=== PATIENT | female | born 1955 | race Caucasian/White ===

== ENCOUNTER 2022-03-10 06:45 | Inpatient (IN) ==
[2022-03-10] MEDS ORDERED: Dexmedetomidine HCl 400 MCG/100 ML MLS IVC ONE (06:56)
[2022-03-10] MEDS ORDERED: Albumin Human 5% 12.5 GM/250 ML IV.SOLN ONE (06:56)
[2022-03-10] MEDS ORDERED: *HR* Vasopressin 20 UNIT/ML VIAL ONE (06:56)
[2022-03-10] MEDS ORDERED: NiCARdipine 2.5 MG/10 ML Syringe IVPB ONE (06:57)
[2022-03-10] MEDS ORDERED: *HR* Propofol 200 MG/20 ML VIAL IVP ONE (07:15)
[2022-03-10] MEDS ORDERED: *HR* FentaNYL (PF) 100 MCG/2 ML VIAL ONE (07:15)
[2022-03-10] MEDS ORDERED: Ondansetron 4 MG/2 ML VIAL ONE (07:19)
[2022-03-10] MEDS ORDERED: Lidocaine -MPF 2% 5 ML VIAL ONE (07:19)
[2022-03-10] MEDS ORDERED: *HR* Rocuronium Bromide 50 MG/5 ML VIAL ONE ×3 (07:19→11:49)
[2022-03-10] MEDS ORDERED: *HR* Phenylephrine 10 MG/ML VIAL ONE (07:21)
[2022-03-10] MEDS ORDERED: Heparin 1,000 UNITS/500 mL 1,500 ML ONE (07:41)
[2022-03-10] MEDS ORDERED: Protamine Sulfate 50 MG/5 ML VIAL IVP ONE (07:42)
[2022-03-10] MEDS ORDERED: *HR* HYDROmorphone PF 0.5 MG/0.5 ML SYRINGE IVP PRN (07:47)
[2022-03-10] MEDS ORDERED: *HR* OxyCODONE Immed Rel 5 MG TABLET PO PRN ×2 (07:47→21:34)
[2022-03-10] MEDS ORDERED: Ondansetron 4 MG/2 ML VIAL IVP PRN (07:48)
[2022-03-10] MEDS ORDERED: Promethazine 6.25 MG in Water for inj. (sterile) 20 ML IVPB PRN (07:48)
[2022-03-10] MEDS ORDERED: CeFAZolin Syr 2,000MG/20 ML 2,000 MG/20 ML SYRINGE IVPB ONE (08:07)
[2022-03-10] MEDS ORDERED: *HR* HYDROMORPHONE 2 MG/ML VIAL ONE (08:52)
[2022-03-10] MEDS ORDERED: *HR* Heparin 5,000 UNIT/ML VIAL ONE (09:23)
[2022-03-10] MEDS ORDERED: EPHEDrine 50 MG/ML VIAL ONE (11:09)
[2022-03-10] MEDS ORDERED: Heparin 1,000 UNITS/500 mL 0 ML ONE (11:36)
[2022-03-10 12:23] LABS: ABG Base Excess -7 mEq/L (-2 to 3); ABG Chloride 105 mEq/L (98-107); ABG Glucose 217 mg/dL (60-95); ABG HCO3 21 mEq/L (21-27); ABG Ionized Calcium 1.09 mmol/L (1.15-1.35); ABG Oxygen Saturation 99 % (95-98); ABG PCO2 51 mmHg (35-45); ABG PH 7.21 pH Units (7.32-7.45); ABG PO2 193 mmHg (85-104); ABG TCO2 22 mEq/L (20-26)
[2022-03-10] MEDS ORDERED: Sugammadex Sodium 200 MG/2 ML VIAL IV ONE (12:44)
[2022-03-10 14:25] LABS: Hematocrit 30.6 % (35.3-44.9)
[2022-03-10 14:26] LABS: Hemoglobin 9.7 g/dL (11.5-15.4)
[2022-03-10] MEDS ORDERED: Naloxone 0.4 MG/ML INJ IVP PRN (18:17)
[2022-03-10] MEDS ORDERED: Ipratropium/Albuterol Neb 3 ML IH PRN (18:18)
[2022-03-10] MEDS ORDERED: Phenylephrine 20 MG in 0.9 % Sodium Chloride 250 ML IVC SCH (19:00)
[2022-03-10] MEDS: Albumin Human 5% 12.5 GM/250 ML IV.SOLN IVC SCH ×2 (22:06→23:12)
[2022-03-10] MEDS: *HR* OxyCODONE Immed Rel 5 MG TABLET PO PRN (22:44)
[2022-03-11] MEDS: *HR* OxyCODONE Immed Rel 5 MG TABLET PO PRN ×3 (02:57→12:50)
[2022-03-11 05:34] LABS: Hematocrit 29.5 % (35.3-44.9); Hemoglobin 9.2 g/dL (11.5-15.4); Mean Corpuscular HGB Conc 31.2 g/dL (31.6-35.5); Mean Corpuscular Hemoglobin 27.4 pg (28.0-33.3); Mean Corpuscular Volume 87.8 fL (83.0-100.0); Mean Platelet Volume 10.1 fL (9.4-12.4); Platelet Count 158 K/mcL (140-400); Red Blood Count 3.36 M/mcL (3.82-4.97); Red Cell Distribution Width 17.9 % (11.5-14.5)
[2022-03-11 05:37] LABS: INR 1.1; Prothrombin Time 12.3 Seconds (9.4-12.1)
[2022-03-11 05:40] LABS: White Blood Count 19.9 K/mcL (4.3-11.1)
[2022-03-11 05:58] LABS: Alanine Aminotransferase 69 Units/L (7-52); Albumin 3.5 g/dL (3.5-5.7); Albumin/Globulin Ratio 2.7 (1.1-2.2); Alkaline Phosphatase 19 Units/L (34-104); Aspartate Amino Transferase 104 Units/L (13-39); BUN/Creatinine Ratio 18 (6-26); Bilirubin,Direct 0.1 mg/dL (0.0-0.2); Bilirubin,Indirect 0.3 mg/dL (0.0-1.0); Bilirubin,Total 0.4 mg/dL (0.3-1.0); Blood Urea Nitrogen 19 mg/dL (8-23); Calcium 8.4 mg/dL (8.6-10.3); Carbon Dioxide 24 mEq/L (23-29); Chloride 107 mEq/L (98-107); Globulin 1.3 g/dL (2.4-3.5); Glucose 121 mg/dL (70-105); Magnesium 1.4 mg/dL (1.6-2.6); Osmolality,Calculated 290 (280-300); Phosphorous 6.4 mg/dL (2.7-4.5); Sodium 138 mEq/L (136-145); Total Protein 4.8 g/dL (6.4-8.9)
[2022-03-11] MEDS ORDERED: Pregabalin 75 MG CAPSULE PO SCH (09:00)
[2022-03-11 09:27] LABS: VBG HCO3 24 mEq/L (21-27); VBG PCO2 59 mmHg (41-51); VBG PH 7.21 pH Units (7.32-7.42); VBG PO2 52 mmHg (25-50)
[2022-03-11 15:56] LABS: Troponin I < 0.03 ng/mL (< 0.04)
[2022-03-11] MEDS ORDERED: Calcium Gluconate 1gm/50mL 1 GM/50 ML BAG IVPB PRN (18:55)
[2022-03-11] MEDS ORDERED: Ipratropium/Albuterol Neb 3 ML IH PRN (18:55)
[2022-03-11] MEDS ORDERED: *HR* OxyCODONE Immed Rel 5 MG TABLET PO PRN ×2 (18:55)
[2022-03-11] MEDS ORDERED: Potassium Phosphate 44 MEQ in 0.9 % Sodium Chloride 250 ML IVPB PRN (18:55)
[2022-03-11] MEDS ORDERED: Naloxone 0.4 MG/ML INJ IVP PRN ×2 (18:55)
[2022-03-11] MEDS ORDERED: Phenylephrine 20 MG in 0.9 % Sodium Chloride 250 ML IVC SCH (18:55)
[2022-03-11] MEDS ORDERED: Ringers Solution, Lactated 1,000 ML IVC SCH (18:55)
[2022-03-11] MEDS ORDERED: Ondansetron 4 MG/2 ML VIAL IVP PRN (18:55)
[2022-03-11] MEDS: Ringers Solution, Lactated 1,000 ML IVC SCH ×2 (18:58→18:59)
[2022-03-11 19:53] LABS: INR 1.1; Prothrombin Time 11.7 Seconds (9.4-12.1)
[2022-03-11] MEDS: Famotidine 20 MG/2 ML VIAL IVP SCH (20:26)
[2022-03-11] MEDS: Pregabalin 75 MG CAPSULE PO SCH (20:26)
[2022-03-11] MEDS: 0.9 % Sodium Chloride 1,000 ML IVC SCH (20:27)
[2022-03-11] MEDS: *HR* Metoprolol 5 MG/5 ML VIAL IVP SCH (20:27)
[2022-03-11] MEDS: Budesonide/Formoterol 80/4.5 1 PUFF INH IH SCH (20:44)
[2022-03-11] MEDS: CeFAZolin 2 GM/120 ML BAG IVPB SCH (21:56)
[2022-03-12 02:47] LABS: VBG Ionized Calcium 1.25 mmol/L (1.15-1.35)
[2022-03-12 03:22] LABS: Basophils % 0.2 %; Hematocrit 27.7 % (35.3-44.9); Hemoglobin 8.4 g/dL (11.5-15.4); Lymphocytes # 1.1 K/mcL (0.6-4.6); Lymphocytes % 7.1 %; Mean Corpuscular HGB Conc 30.3 g/dL (31.6-35.5); Mean Corpuscular Volume 89.1 fL (83.0-100.0); Mean Platelet Volume 9.6 fL (9.4-12.4); Monocytes # 1.2 K/mcL (0.0-1.3); Monocytes % 7.4 %; Neutrophils # 13.2 K/mcL (1.6-8.9); Platelet Count 173 K/mcL (140-400); Red Blood Count 3.11 M/mcL (3.82-4.97); Red Cell Distribution Width 18.5 % (11.5-14.5); Segmented Neutrophils % 84.3 %; White Blood Count 15.6 K/mcL (4.3-11.1)
[2022-03-12] MEDS: *HR* Metoprolol 5 MG/5 ML VIAL IVP SCH ×5 (03:26→23:09)
[2022-03-12] MEDS: CeFAZolin 2 GM/120 ML BAG IVPB SCH ×2 (03:57→12:17)
[2022-03-12] MEDS: Famotidine 20 MG/2 ML VIAL IVP SCH ×2 (05:42→18:06)
[2022-03-12] MEDS: Budesonide/Formoterol 80/4.5 1 PUFF INH IH SCH ×2 (07:23→20:13)
[2022-03-12] MEDS ORDERED: *HR* Dextrose 50 % in Water (Syg) 50 ML SYRINGE ONE (09:49)
[2022-03-12] MEDS ORDERED: *HR* Dextrose 50 % in Water (Syg) 50 ML SYRINGE IVP ONE (09:58)
[2022-03-12] MEDS: Pregabalin 75 MG CAPSULE PO SCH ×2 (10:05→19:18)
[2022-03-12] MEDS: 0.9 % Sodium Chloride 1,000 ML IVC SCH (10:08)
[2022-03-12] MEDS ORDERED: 0.9 % Sodium Chloride 1,000 ML IVC SCH (14:15)
[2022-03-12 15:15] LABS: Calcium 8.1 mg/dL (8.6-10.3); Potassium 3.6 mEq/L (3.5-5.1)
[2022-03-12] MEDS: *HR* Dextrose 50 % in Water (Syg) 50 ML SYRINGE IVP PRN (17:17)
[2022-03-12] MEDS: D5% in 0.9% NACL 1,000 ML IVC SCH (18:06)
[2022-03-13] MEDS: *HR* Labetalol 20 MG/4 ML SYRINGE IVP PRN ×2 (01:44→20:11)
[2022-03-13 03:10] LABS: Basophils % 0.2 %; Eosinophils % 0.1 %; Hematocrit 25.9 % (35.3-44.9); Hemoglobin 7.7 g/dL (11.5-15.4); Immature Granulocytes % 0.6 % (0-4); Lymphocytes # 0.8 K/mcL (0.6-4.6); Lymphocytes % 6.2 %; Mean Corpuscular HGB Conc 29.7 g/dL (31.6-35.5); Mean Corpuscular Hemoglobin 26.6 pg (28.0-33.3); Mean Corpuscular Volume 89.6 fL (83.0-100.0); Mean Platelet Volume 9.4 fL (9.4-12.4); Monocytes # 0.9 K/mcL (0.0-1.3); Monocytes % 7.4 %; Neutrophils # 10.4 K/mcL (1.6-8.9); Platelet Count 174 K/mcL (140-400); Red Blood Count 2.89 M/mcL (3.82-4.97); Red Cell Distribution Width 18.4 % (11.5-14.5); Segmented Neutrophils % 85.5 %; White Blood Count 12.2 K/mcL (4.3-11.1)
[2022-03-13 03:31] LABS: BUN/Creatinine Ratio 28 (6-26); Blood Urea Nitrogen 17 mg/dL (8-23); Calcium 8.5 mg/dL (8.6-10.3); Carbon Dioxide 27 mEq/L (23-29); Chloride 109 mEq/L (98-107); Glucose 122 mg/dL (70-105); Magnesium 2.1 mg/dL (1.6-2.6); Osmolality,Calculated 295 (280-300); Phosphorous 1.6 mg/dL (2.7-4.5); Potassium 3.6 mEq/L (3.5-5.1); Sodium 141 mEq/L (136-145)
[2022-03-13] MEDS: Famotidine 20 MG/2 ML VIAL IVP SCH ×2 (05:37→17:33)
[2022-03-13] MEDS: *HR* Metoprolol 5 MG/5 ML VIAL IVP SCH ×4 (05:37→22:57)
[2022-03-13] MEDS: Budesonide/Formoterol 80/4.5 1 PUFF INH IH SCH ×2 (08:00→20:27)
[2022-03-13] MEDS: Pregabalin 75 MG CAPSULE PO SCH ×2 (09:51→20:11)
[2022-03-13] MEDS: Metoclopramide 10 MG/2 ML VIAL IVP SCH ×3 (12:07→22:57)
[2022-03-13] MEDS: D5% in 0.9% NACL 1,000 ML IVC SCH (14:21)
[2022-03-13 23:09] LABS: BUN/Creatinine Ratio 24 (6-26); Blood Urea Nitrogen 12 mg/dL (8-23); Calcium 8.5 mg/dL (8.6-10.3); Carbon Dioxide 25 mEq/L (23-29); Chloride 111 mEq/L (98-107); Glucose 119 mg/dL (70-105); Osmolality,Calculated 293 (280-300); Potassium 4.2 mEq/L (3.5-5.1); Sodium 141 mEq/L (136-145)
[2022-03-13] MEDS ORDERED: D5% in Water 1,000 ML IVC PRN (23:52)
[2022-03-13] MEDS ORDERED: Dextrose Gel 15 GM/37.5 ML TUBE PO PRN ×2 (23:52)
[2022-03-13] MEDS: *HR* Dextrose 50 % in Water (Syg) 50 ML SYRINGE IVP PRN (23:59)
[2022-03-14 02:29] LABS: Hematocrit 22.8 % (35.3-44.9); Hemoglobin 6.9 g/dL (11.5-15.4); Mean Corpuscular HGB Conc 30.3 g/dL (31.6-35.5); Mean Corpuscular Volume 89.1 fL (83.0-100.0); Mean Platelet Volume 9.8 fL (9.4-12.4); Platelet Count 167 K/mcL (140-400); Red Blood Count 2.56 M/mcL (3.82-4.97); Red Cell Distribution Width 18.4 % (11.5-14.5); White Blood Count 10.1 K/mcL (4.3-11.1)
[2022-03-14 02:49] LABS: BUN/Creatinine Ratio 24 (6-26); Blood Urea Nitrogen 12 mg/dL (8-23); Calcium 8.2 mg/dL (8.6-10.3); Carbon Dioxide 26 mEq/L (23-29); Chloride 109 mEq/L (98-107); Glucose 195 mg/dL (70-105); Osmolality,Calculated 295 (280-300); Potassium 3.4 mEq/L (3.5-5.1); Sodium 140 mEq/L (136-145)
[2022-03-14] MEDS ORDERED: Potassium Chloride Elixir 20 MEQ/15 ML UDC PO ONE (04:43)
[2022-03-14] MEDS: *HR* Metoprolol 5 MG/5 ML VIAL IVP SCH ×4 (05:20→23:39)
[2022-03-14] MEDS: Famotidine 20 MG/2 ML VIAL IVP SCH ×2 (05:21→20:32)
[2022-03-14] MEDS: Metoclopramide 10 MG/2 ML VIAL IVP SCH (05:21)
[2022-03-14] MEDS: Budesonide/Formoterol 80/4.5 1 PUFF INH IH SCH ×2 (07:11→21:48)
[2022-03-14] MEDS: D5% in 0.9% NACL 1,000 ML IVC SCH (09:32)
[2022-03-14] MEDS ORDERED: 0.9 % Sodium Chloride 250 ML ONE (09:35)
[2022-03-14] MEDS: Pregabalin 75 MG CAPSULE PO SCH ×2 (09:37→20:32)
[2022-03-14] MEDS: *HR* Labetalol 20 MG/4 ML SYRINGE IVP PRN (15:43)
[2022-03-14 16:46] LABS: Bilirubin,Urine Negative (Negative); Blood,Urine Negative (Negative); Clarity,Urine Turbid (Clear); Color,Urine Light-Yellow (Yellow); Glucose,Urine (UA) 100 mg/dL (Normal); Hyaline Casts,Urine Few per lpf (None Seen); Ketones,Urine Negative (Negative); Leukocyte Esterase,Urine Small (Negative); Mucus,Urine Few per lpf (None-Few); Nitrite,Urine Negative (Negative); Protein,Urine 30 mg/dL (Neg-Trace); RBC,Urine 0-3 per hpf (0-3); Specific Gravity,Urine 1.017 (1.010-1.025); Squamous Epithelial Cell,Urine Many per hpf (None-Few); Urobilinogen,Urine Normal (Normal)
[2022-03-14] MEDS: Piperacillin/Tazobactam 3.375 GM in 0.9 % Sodium Chloride Mini Bag 100 ML IVPB SCH ×2 (20:27→23:38)
[2022-03-15] MEDS: Famotidine 20 MG/2 ML VIAL IVP SCH ×3 (04:56→17:16)
[2022-03-15] MEDS: *HR* Metoprolol 5 MG/5 ML VIAL IVP SCH ×2 (04:56→06:39)
[2022-03-15 06:24] LABS: Hematocrit 31.2 % (35.3-44.9); Mean Corpuscular HGB Conc 31.7 g/dL (31.6-35.5); Mean Corpuscular Hemoglobin 27.8 pg (28.0-33.3); Mean Corpuscular Volume 87.6 fL (83.0-100.0); Mean Platelet Volume 9.8 fL (9.4-12.4); Platelet Count 258 K/mcL (140-400); Red Blood Count 3.56 M/mcL (3.82-4.97); Red Cell Distribution Width 17.4 % (11.5-14.5); White Blood Count 12.9 K/mcL (4.3-11.1)
[2022-03-15 06:28] LABS: Hemoglobin 9.9 g/dL (11.5-15.4)
[2022-03-15 06:40] LABS: BUN/Creatinine Ratio 16 (6-26); Blood Urea Nitrogen 9 mg/dL (8-23); Calcium 9.2 mg/dL (8.6-10.3); Carbon Dioxide 26 mEq/L (23-29); Chloride 105 mEq/L (98-107); Glucose 116 mg/dL (70-105); Magnesium 1.7 mg/dL (1.6-2.6); Osmolality,Calculated 290 (280-300); Potassium 3.5 mEq/L (3.5-5.1); Sodium 140 mEq/L (136-145)
[2022-03-15] MEDS: Piperacillin/Tazobactam 3.375 GM in 0.9 % Sodium Chloride Mini Bag 100 ML IVPB SCH ×2 (08:04→17:15)
[2022-03-15] MEDS: Pregabalin 75 MG CAPSULE PO SCH ×2 (08:05→21:03)
[2022-03-15] MEDS: carvediloL 6.25 MG TABLET PO SCH ×2 (08:05→17:16)
[2022-03-15] MEDS: DilTIAZem CD (24hr) 180 MG CAP.ER.24H PO SCH (08:05)
[2022-03-15] MEDS: Budesonide/Formoterol 80/4.5 1 PUFF INH IH SCH ×2 (11:06→20:36)
[2022-03-16] MEDS: Piperacillin/Tazobactam 3.375 GM in 0.9 % Sodium Chloride Mini Bag 100 ML IVPB SCH (00:24)
[2022-03-16 02:40] LABS: Hematocrit 31.4 % (35.3-44.9); Mean Corpuscular HGB Conc 31.8 g/dL (31.6-35.5); Mean Corpuscular Hemoglobin 27.5 pg (28.0-33.3); Mean Corpuscular Volume 86.3 fL (83.0-100.0); Platelet Count 269 K/mcL (140-400); Red Blood Count 3.64 M/mcL (3.82-4.97); Red Cell Distribution Width 17.7 % (11.5-14.5); White Blood Count 9.4 K/mcL (4.3-11.1)
[2022-03-16 02:53] LABS: BUN/Creatinine Ratio 21 (6-26); Blood Urea Nitrogen 12 mg/dL (8-23); Calcium 8.9 mg/dL (8.6-10.3); Carbon Dioxide 27 mEq/L (23-29); Chloride 105 mEq/L (98-107); Glucose 108 mg/dL (70-105); Osmolality,Calculated 286 (280-300); Potassium 3.3 mEq/L (3.5-5.1); Sodium 138 mEq/L (136-145)
[2022-03-16] MEDS: Famotidine 20 MG/2 ML VIAL IVP SCH (05:05)
[2022-03-16] MEDS: Budesonide/Formoterol 80/4.5 1 PUFF INH IH SCH (07:29)
[2022-03-16] MEDS: DilTIAZem CD (24hr) 180 MG CAP.ER.24H PO SCH (07:46)
[2022-03-16] MEDS: Pregabalin 75 MG CAPSULE PO SCH (07:46)
[2022-03-16] MEDS: carvediloL 6.25 MG TABLET PO SCH (07:46)
[2022-03-16 11:12] VITALS: BP 159/74; TEMP 98.9; O2SAT 97
[2022-03-16 13:32] VITALS: PULSE 78
== END 2022-03-16 15:10 | disposition home or self-care (01) | DRG 268 ==
LOC: SAMDAY 06:45 → ICNU 19:13 → SUATTDRO 19:13 → 2NNU 03-11 21:55
PROVIDERS: ADMIT Surgery Vascular Surgery; ATTEND Internal Medicine